=== PATIENT | male | born 1940 | race Caucasian/White ===

== ENCOUNTER 2019-02-11 10:49 | Emergency (ER) | payer MEDICARE ==
[2019-02-11 11:09] LABS: #Basophils 0.1 thou/uL (0.0-0.2); #Eosinphils 0.2 thou/uL (0.0-0.7); #Lymphocytes 2.4 thou/uL (1.20-3.40); #Monocytes 0.5 thou/uL (0.11-0.59); #Neutrophils 4.4 thou/uL (1.40-6.50); %Basophils 0.8 % (0.0-1.0); %Eosinophils 2.2 % (0.0-10.0); %Lymphocytes 31.6 % (21.0-51.0); %Monocytes 6.8 % (0.0-10.0); %Neutrophils 58.6 % (42.0-75.0); Hemoglobin 12.7 g/dL (14.0-18.0); Mean Corpuscular HGB CONC 33.9 g/dL (32.0-36.0); Mean Corpuscular Hemoglobin 30.5 pg (27.0-31.0); Mean Platelet Volume 6.4 fL (7.4-10.4); Platelet Count 322 thou/uL (130-400); RBC Distribution Width 11.7 % (11.5-14.5); Red Blood Cell (RBC) Count 4.17 mill/uL (4.70-6.10); White Blood Cell (WBC) Count 7.6 thou/uL (4.8-10.8)
[2019-02-11 11:28] LABS: Bilirubin Negative (Negative); Blood, Urine Negative (Negative); Clarity CLEAR (Clear); Glucose, Urine (Dipstick) Negative (Negative); Leukocyte Negative (Negative); Nitrite Negative (Negative); Protein, Urine (Dipstick) Negative (Neg-Trace); Specific Gravity, Urine 1.017 (1.002-1.036); Urobilinogen 0.2 mg/dL (0.2-1.0); pH, Urine 6.5 (5.0-9.0)
[2019-02-11 11:32] LABS: ALT (SGPT) 18 U/L (8-55); AST (SGOT) 17 U/L (5-34); Albumin 4.1 g/dL (3.4-4.8); Alkaline Phosphatase 81 U/L (40-150); Anion Gap 11 mmol/L (10-20); BUN (Urea Nitrogen) 21 mg/dL (8.4-25.7); Bilirubin, Total 0.4 mg/dL (0.2-1.2); Calc. Creatinine Clearance 0 mL/min (70-130); Calcium 9.6 mg/dL (7.8-10.44); Carbon Dioxide 27 mmol/L (23-31); Chloride 100 mmol/L (98-107); Estimated GFR-MDRD 52; Globulin 2.9 g/dL (2.4-3.5); Glucose 111 mg/dL (83-110); Lipase 23 U/L (8-78); Potassium 4.4 mmol/L (3.5-5.1); Sodium 134 mmol/L (136-145)
--- NOTE | 2019-02-11 11:49 | CT ---
CT ABDOMEN AND PELVIS NONCONTRAST: Date: 02/11/19 HISTORY: Right flank pain. FINDINGS: Each renal collecting system, ureter, and urinary bladder are decompressed without stone apparent. Lack of contrast limits evaluation for other abnormalities. Projecting laterally from the cortex of t he mid portion of the left kidney, a partially exophytic 1.5 cm hyperdense cyst is noted. Calcification throughout the arterial structures. Postoperative changes lumbar spine. IMPRESSION: 1. No CT evidence of urinary tract obstruction or calcification. 2. Atherosclerosis. POS: CET
[2019-02-11] MEDS ORDERED: Ketorolac Tromethamine 60 MG/2 ML VIAL ONE (12:45)
== END 2019-02-11 13:03 | disposition home or self-care (01) ==
LOC: ERS 10:49
DX: M54.16 Radiculopathy, lumbar region (principal); N40.0 Benign prostatic hyperplasia without lower urinary tract symptoms; E78.5 Hyperlipidemia, unspecified; I10 Essential (primary) hypertension; Z87.891 Personal history of nicotine dependence; Z79.899 Other long term (current) drug therapy; Z79.51 Long term (current) use of inhaled steroids
CPT/HCPCS: 36415; 74176; 80053; 81003; 83690; 85025; 96372; J1885

== ENCOUNTER 2019-03-09 14:32 | Outpatient (CLI) | payer MEDICARE ==
--- NOTE | 2019-03-09 16:48 | MRI ---
MRI LUMBAR SPINE WITH AND WITHOUT CONTRAST: HISTORY: Lumbar spinal stenosis. Severe back pain one month ago. COMPARISON: Noncontrast lumbar spine MRI from 07/08/2014. TECHNIQUE: An MRI of the lumbar spine is performed with and without intravenous Gadolinium administration. Mult isequential, multiplanar imaging is performed. FINDINGS: Heterogeneous marrow signal intensity of the lumbar vertebrae, likely due to senescent change. The o verall marrow signal intensity is similar to the previous examination. Multifocal endplate Schmorl's nodes are noted. Post contrast images do not demonstrate any abnormal enhancement, with regard to t he vertebral bodies. There is no abnormal enhancement within the thecal sac, including the cauda equ tom and the conus medullaris. There is no significant STIR hyperintensity to suggest vertebral body edema or ligamentous injury. T here is 6.7 mm of anterolisthesis of L5 upon S1. No associated spondylolysis. Appropriate signal intensity of the paraspinal muscles. Multiple T2 hyperintensities in the renal cortices, likely representing cysts. A small amount of per inephric fluid is noted bilaterally. T12-L1: No significant central canal stenosis or neural foraminal narrowing. L1-L2: Desiccation with moderate loss of disk space height. No significant central canal stenosis. Mild to moderate bilateral neural foraminal narrowing. L2-L3: Desiccation with moderate loss of disk space height. Central disk protrusion. Mild central canal stenosis. Mild right and moderate left foraminal narrowing. L3-L4: Desiccation with moderate loss of disk space height. Posterior laminectomy defect. No signi ficant central canal stenosis. Moderate right and left foraminal narrowing. L4-L5: Desiccation with moderate loss of disk space height. There is a generalized disk bulge witho ut significant stenosis of the thecal sac. Posterior laminectomy defect is identified. Moderate rig ht and left neural foraminal narrowing. L5-S1: Desiccation with moderate loss of disk space height. There is a posterior laminectomy defect . No significant central canal stenosis. Mild bilateral neural foraminal narrowing. IMPRESSION: 1. Postoperative changes of the lumbar spine, as detailed above. There is no significant central ca nal stenosis. There are varying degrees of neural foraminal narrowing, as detailed above. 2. Grade 1 anterolisthesis of L5 upon S1. 3. Multilevel Schmorl's nodes, similar to the previous examination. POS: OFF
== END 2019-03-09 14:33 | disposition home or self-care (01) ==
LOC: TBSIIMAG 14:32
PROVIDERS: ATTEND Family Medicine
DX: M48.061 Spinal stenosis, lumbar region without neurogenic claudication (principal); M54.16 Radiculopathy, lumbar region; M48.07 Spinal stenosis, lumbosacral region; M43.17 Spondylolisthesis, lumbosacral region; M51.46 Schmorl's nodes, lumbar region; M51.45 Schmorl's nodes, thoracolumbar region; M51.47 Schmorl's nodes, lumbosacral region; Z98.890 Other specified postprocedural states
CPT/HCPCS: 72158

== ENCOUNTER 2019-05-20 13:44 | Emergency (ER) | payer MEDICARE ==
[2019-05-20] MEDS ORDERED: Ketorolac Tromethamine 30 MG/ML VIAL ONE (14:28)
[2019-05-20] MEDS ORDERED: Diazepam 5 MG TAB ONE (14:28)
--- NOTE | 2019-05-20 15:04 | CT ---
CERVICAL SPINE CT WITHOUT CONTRAST: 05/20/19 HISTORY: No trauma. Neck pain x1 week. COMPARISON: None. Straightening of normal cervical lordosis may be due to patient position or muscle spasm. There is n o prevertebral soft tissue swelling. The visualized soft tissue neck structures are unremarkable. Upper mediastinum and lung apices does not demonstrate an acute abnormality. Minimal emphysematous ch anges in the lung apices. No craniocervical dissociation. Appropriate alignment of the lateral masses of C1 and C2. Intact odon toid process. Cervical spine vertebral body height is maintained. There is no cervical spine fracture. Limited evaluation of the contents of the central spinal canal and neural foramina due to technique. C2-C3: No high grade central canal stenosis. Moderate right foraminal narrowing due to uncovertebral and facet hypertrophy. Mild left foraminal narrowing due to uncovertebral hypertrophy. C3-C4: Broad based disc osteophyte complex. Mild central canal stenosis. Moderate to severe right and moderate left foraminal narrowing due to uncovertebral hypertrophy. There is also right facet hypert rophy. C4-C5: Broad based disc osteophyte complex with at least mild central canal stenosis. Moderate bilate ral foraminal narrowing due to uncovertebral hypertrophy. C5-C6: Broad based disc osteophyte complex abuts the thecal sac. Mild to moderate central canal steno sis. Moderate bilateral foraminal narrowing due to uncovertebral hypertrophy. C6-C7: Broad based disc osteophyte complex results in at least mild central canal stenosis. Mild bila teral foraminal narrowing due to uncovertebral hypertrophy. C7-T1: No significant central canal stenosis. Bilaterally, neural foramina are patent. IMPRESSION: 1. No fracture. 2. Straightening of the normal cervical lordosis which may be due to patient position or muscle spasm. 3. Multilevel degenerative changes with disc osteophyte complex. There is varying degrees of kamron tral canal stenosis. No evidence of high grade central stenosis. However, there is significant neural foraminal narrowing at multiple levels. Better interrogation with a nonemergent MRI of the cervical spine. POS: TPC
== END 2019-05-20 16:48 | disposition home or self-care (01) ==
LOC: ERS 13:44
DX: M54.2 Cervicalgia (principal); N40.0 Benign prostatic hyperplasia without lower urinary tract symptoms; E78.5 Hyperlipidemia, unspecified; E78.00 Pure hypercholesterolemia, unspecified; I10 Essential (primary) hypertension; J44.9 Chronic obstructive pulmonary disease, unspecified; Z87.891 Personal history of nicotine dependence; Z79.899 Other long term (current) drug therapy
CPT/HCPCS: 72125; 96372; J1885

== ENCOUNTER 2020-07-22 18:47 | Inpatient (IN) | payer MEDICARE ==
[2020-07-22] MEDS ORDERED: Morphine 4 MG/ML VIAL ONE (19:50)
[2020-07-22] MEDS ORDERED: Piperacillin/Tazobactam 4.5 GM VIAL ONE (19:50)
[2020-07-22 19:51] LABS: %Basophils 0.4 % (0.0-1.0); %Eosinophils 0.3 % (0.0-10.0); %Lymphocytes 18.1 % (21.0-51.0); %Monocytes 8.7 % (0.0-10.0); %Neutrophils 72.6 % (42.0-75.0); Hemoglobin 11.7 g/dL (14.0-18.0); Mean Corpuscular HGB CONC 33.9 g/dL (32.0-36.0); Mean Corpuscular Hemoglobin 30.7 pg (27.0-31.0); Mean Corpuscular Volume 90.4 fL (78.0-98.0); Mean Platelet Volume 7.1 fL (7.4-10.4); Platelet Count 379 thou/uL (130-400); RBC Distribution Width 11.6 % (11.5-14.5); Red Blood Cell (RBC) Count 3.83 mill/uL (4.70-6.10)
[2020-07-22 20:12] LABS: ALT (SGPT) 11 U/L (8-55); AST (SGOT) 18 U/L (5-34); Albumin 3.9 g/dL (3.4-4.8); Alkaline Phosphatase 97 U/L (40-110); Anion Gap 13 mmol/L (10-20); BUN (Urea Nitrogen) 24 mg/dL (8.4-25.7); Bilirubin, Total 0.3 mg/dL (0.2-1.2); Calc. Creatinine Clearance 0 mL/min (70-130); Calcium 10.1 mg/dL (7.8-10.44); Carbon Dioxide 31 mmol/L (23-31); Chloride 98 mmol/L (98-107); Glucose 111 mg/dL (83-110); Potassium 4.2 mmol/L (3.5-5.1); Protein, Total 7.9 g/dL (5.8-8.1); Sodium 138 mmol/L (136-145)
--- NOTE | 2020-07-22 21:04 | RAD ---
THREE VIEWS LEFT HAND: 07/22/20 HISTORY: Dorsal aspect of the hand was scratched by a rabbit. Swelling and pain. FINDINGS: There is soft tissue swelling. Correlate for cellulitis. There are no erosive or destructive changes to suggest osteomyelitis. There are degenerative changes involving the first metacarpophalangeal lara nt space and first interphalangeal joint space. Additional mild degenerative changes noted in the sec ond distal interphalangeal joint space. There are no radiopaque foreign bodies. IMPRESSION: 1. Soft tissue swelling, suggesting cellulitis. Correlate clinically. 2. No fracture or radiopaque foreign body. POS: PPP
[2020-07-22] MEDS ORDERED: Ketorolac Tromethamine 30 MG/ML VIAL ONE (22:10)
[2020-07-22] MEDS ORDERED: Acetaminophen 325 MG TAB PO PRN (23:06)
--- NOTE | 2020-07-22 23:29 | PDOC.HHP ---
Hospitalist HPI - History of Present Illness Rabbit scratch History of Present Illness: Mr. Mcmahon is a 71-year-old male with a past medical history of hypertension, hyperlipidemia, COPD not on home O2, BPH who presented to the ED for a rabbit scratch. Patient reports that 6 days prior to admission he was scratched by a rabbit which mallory blood on his dorsum of left hand. Patient reports that he was at [employer] rabbit that they were purchasing from a breeder when the scratch occurred. Patient immediately cleaned and washed the cut, however he noticed increasing redness and swelling over the next few days and on day 2 presented to [facility]. There he was given Rocephin and discharged with a prescription for p.o. Augmentin. Patient's hand is continued to become increasingly painful with worsening swelling and redness so he represented to the emergency room here. Patient denies fevers, night sweats, chills. Denies any other concerns or complaints at this time. In emergency room initial vital signs 123/52, 82, 22, 98.6, 93% on room air. Lactic acid 0.8. WBC 11.0, H/H 11.7/34.6. BUN/CR 24/1.38, sodium 138 potassium 4.2. X-ray of the left hand showed soft tissue swelling with no evidence of gas. Patient received vancomycin, Zosyn and 1 L of normal saline. Hospitalist ROS - Review of Systems Constitutional: denies: fever, chills, sweats, weakness, malaise, other Eyes: denies: pain, vision change, conjunctivae inflammation, eyelid inflammation, redness, other ENT: denies: ear pain, ear discharge, nose pain, nose discharge, nose congestion, mouth pain, mouth swelling, throat pain, throat swelling, other Respiratory: denies: cough, dry, shortness of breath, hemoptysis, SOB with excertion, pleuritic pain, sputum, wheezing, other Cardiovascular: denies: chest pain, palpitations, orthopnea, paroxysmal noc. dyspnea, edema, light headedness, other Gastrointestinal: denies: nausea, vomiting, abdominal pain, diarrhea, constipation, melena, hematochezia, other Genitourinary: denies: dysuria, frequency, incontinence, hematuria, retention, other Musculoskeletal: reports: hand pain. denies: neck pain, shoulder pain, arm pain, back pain, leg pain, foot pain, other Skin: reports: rash (Erythema and edema to left hand extending up to the wrist.) Neurological: denies: weakness, numbness, incoordination, change in speech, confusion, seizures, other - Medication Medications: Medications include Tamsulosin Crestor Norvasc Finasteride Furosemide Spiriva Symbicort No known drug allergies Hospitalist History - Past Medical History Other Medical History: Past medical history includes BPH Hypertension Hyperlipidemia COPD not on home O2 - Past Surgical History Other Surgical History: Past surgical history includes Back surgery - Family History Other Family History: Denies family history of heart disease or cancer - Social History Smoking Status: Never smoker Alcohol: reports: None Drugs: reports: none Living Situation: With Family Activity level: independent ambulation - Exam General Appearance: NAD, awake alert General - other findings: Hard of hearing Eye: PERRL, anicteric sclera ENT: normocephalic atraumatic, no oropharyngeal lesions, moist mucosa Neck: supple, symmetric, no JVD, no thyromegaly, no lymphadenopathy, no carotid bruit Heart: RRR, no murmur, no gallops, no rubs, normal peripheral pulses Respiratory: CTAB, no wheezes, no rales, no ronchi, normal chest expansion, no tachypnea, normal percussion Gastrointestinal: soft, non-tender, non-distended, normal bowel sounds, no palpable masses, no hepatomegaly, no splenomegaly, no bruit Extremities - other findings: Significant edema and erythema to left hand with 3 cm scratch to the dorsum Skin - other findings: No purulent drainage, no pain along the flexor tendon sheath Neurological: cranial nerve grossly intact, normal sensation to touch, no weakness, no focal deficits, no new deficit Musculoskeletal: normal tone, normal strength, no muscle wasting Psychiatric: normal affect, normal behavior, A&O x 3 Hospitalist Results - Labs Result Diagrams: 07/23/20 06:00 07/23/20 06:00 Lab results: WBC 11.0 thou/uL (4.8-10.8) H 07/22/20 19:39 Hgb 11.7 g/dL (14.0-18.0) L 07/22/20 19:39 Hct 34.6 % (42.0-52.0) L 07/22/20 19:39 MCV 90.4 fL (78.0-98.0) 07/22/20 19:39 Plt Count 379 thou/uL (130-400) 07/22/20 19:39 Neutrophils % 72.6 % (42.0-75.0) 07/22/20 19:39 Sodium 138 mmol/L (136-145) 07/22/20 19:39 Potassium 4.2 mmol/L (3.5-5.1) 07/22/20 19:39 Chloride 98 mmol/L (98-107) 07/22/20 19:39 Carbon Dioxide 31 mmol/L (23-31) 07/22/20 19:39 BUN 24 mg/dL (8.4-25.7) 07/22/20 19:39 Creatinine 1.38 mg/dL (0.7-1.3) H 07/22/20 19:39 Glucose 111 mg/dL (83-110) H 07/22/20 19:39 Lactic Acid 0.8 mmol/L (0.5-2.2) 07/22/20 19:39 Calcium 10.1 mg/dL (7.8-10.44) 07/22/20 19:39 Total Bilirubin 0.3 mg/dL (0.2-1.2) 07/22/20 19:39 AST 18 U/L (5-34) 07/22/20 19:39 ALT 11 U/L (8-55) 07/22/20 19:39 Alkaline Phosphatase 97 U/L (40-110) 07/22/20 19:39 Serum Total Protein 7.9 g/dL (5.8-8.1) 07/22/20 19:39 Albumin 3.9 g/dL (3.4-4.8) 07/22/20 19:39 Hospitalist H&P A/P - Plan Plan: Rabbit scratch with cellulitis 79-year-old male with rabbit scratch now infected and cellulitic. Patient failed outpatient therapy with Augmentin. Given extent of redness/swelling and failure of outpatient abx, concern for [place]. Patient neurovascularly intact with no signs of flexor tenosynovitis. X-ray of hand showed soft tissue swelling but no gas. Patient with white blood cell count of 11.0, lactic acid 0.8. Not currently meeting SIRS criteria. Patient received vancomycin and Zosyn in emergency room. Will add doxycycline for tularemia coverage. Plan IV Zosyn, doxycycline Follow blood cultures Trend WBC, fever curve Elevate extremity COPD Patient with history of COPD not on home O2. Patient's O2 sats did drop in the emergency room to 86% on room air. Is now on 2 L and maintaining O2 sat around 92%. Given patient's infection from a rabbit scratch and potential for tularemia, although rare will obtain chest x-ray to monitor for pneumonia. Patient currently denies any respiratory symptoms. Plan Supplemental oxygen as needed Chest x-ray Continue home Symbicort and Spiriva inhalers DuoNebs as needed ZOEY Patient with mild ZOEY, BUN/CR 24/1.38. Patient denies any history of chronic kidney disease. Baseline creatinine unknown. Will give patient gentle IV fluids and continue to monitor. Plan IV fluids Trend kidney function Avoid nephrotoxic agents when possible Renal dosing is appropriate Hypertension History of hypertension on home Norvasc and furosemide. Will continue home medications once dosages confirmed. Hyperlipidemia On home Crestor. We will continue home statin. BPH History of BPH on tamsulosin. We will continue. DVT prophylaxis: Heparin Full code Case discussed with attending physician, Dr. Jaimes who is in agreement with assessment and plan.
[2020-07-23] MEDS ORDERED: Ondansetron ODT 4 MG TAB SL PRN (00:30)
[2020-07-23] MEDS ORDERED: Ondansetron PF 4 MG/2 ML Vial IVP PRN (00:30)
[2020-07-23] MEDS ORDERED: Acetaminophen 325 MG TAB PO PRN (00:30)
[2020-07-23] MEDS ORDERED: HYDROcodone/Acetaminophen 5/325 mg Tablet PO PRN ×2 (00:30)
[2020-07-23] MEDS: Piperacillin/Tazobactam 3.375 GM in Sodium Chloride 0.9% 100 ML IVPB SCH ×4 (01:52→20:37)
[2020-07-23 06:26] LABS: #Basophils 0.1 thou/uL (0.0-0.2); #Eosinphils 0.1 thou/uL (0.0-0.7); #Lymphocytes 2.2 thou/uL (1.20-3.40); #Monocytes 0.7 thou/uL (0.11-0.59); #Neutrophils 4.9 thou/uL (1.40-6.50); %Basophils 0.7 % (0.0-1.0); %Lymphocytes 28.3 % (21.0-51.0); %Monocytes 8.3 % (0.0-10.0); %Neutrophils 61.7 % (42.0-75.0); Hemoglobin 10.2 g/dL (14.0-18.0); Mean Corpuscular HGB CONC 33.4 g/dL (32.0-36.0); Mean Corpuscular Hemoglobin 31.2 pg (27.0-31.0); Mean Corpuscular Volume 93.1 fL (78.0-98.0); Mean Platelet Volume 7.3 fL (7.4-10.4); Platelet Count 323 thou/uL (130-400); RBC Distribution Width 11.6 % (11.5-14.5); Red Blood Cell (RBC) Count 3.28 mill/uL (4.70-6.10); White Blood Cell (WBC) Count 7.9 thou/uL (4.8-10.8)
[2020-07-23 06:50] LABS: Anion Gap 10 mmol/L (10-20); BUN (Urea Nitrogen) 27 mg/dL (8.4-25.7); Calc. Creatinine Clearance 49 mL/min (70-130); Calcium 8.5 mg/dL (7.8-10.44); Carbon Dioxide 27 mmol/L (23-31); Chloride 105 mmol/L (98-107); Glucose 133 mg/dL (83-110); Sodium 138 mmol/L (136-145)
--- NOTE | 2020-07-23 09:24 | RAD ---
CHEST 1 VIEW: Date: 07/22/2020 INDICATION: History of shortness of breath. COMPARISON: Prior exam dated 12/04/2013. FINDINGS: Chronic lung changes are stable. Mild cardiomegaly is stable. Vascular calcification of aortic arch s table. No pleural effusion or pneumothorax evident. IMPRESSION: Stable chronic findings. No acute abnormality. POS: BH
[2020-07-23] MEDS: Heparin 5,000 UNITS/ML VIAL SC SCH ×3 (10:48→20:38)
--- NOTE | 2020-07-23 12:28 | PDOC.HOSPP ---
- Subjective Encounter Date: 07/23/20 Encounter Time: 10:40 Subjective: feels better, his left hand swelling and pain is coming down is able to flex and move his wrist and fingers now - Objective Vital Signs & Weight: Vital Signs (12 hours) Temp Pulse Resp BP Pulse Ox 07/23/20 10:21 93 L 07/23/20 08:15 97.9 F 65 18 142/64 H 93 L 07/23/20 04:59 93 L 07/23/20 03:45 99.6 F 64 18 123/60 93 L Weight Weight 183 lb 0.091 oz I&O: 07/22/20 07/23/20 07/24/20 06:59 06:59 06:59 Intake Total 450 Output Total 375 Balance 75 Result Diagrams: 07/23/20 06:00 07/23/20 06:00 Hospitalist ROS - Medication Medications: Active Medications Generic Name Dose Route Start Last Admin Trade Name Freq PRN Reason Stop Dose Admin Heparin Sodium (Porcine) 5,000 units 07/23/20 09:00 07/23/20 10:48 Heparin 5,000 Units/Ml Vial SC 5,000 units TID DINESH Administration Piperacillin Sod/Tazobactam 100 mls @ 200 mls/hr 07/23/20 02:00 07/23/20 08:44 Sod 3.375 gm/ Sodium Chloride IVPB 100 mls 0200,0800,1400,2000 DINESH Administration Doxycycline Hyclate 100 mg/ 100 mls @ 100 mls/hr 07/23/20 09:00 07/23/20 10:48 Sodium Chloride IVPB 100 mls Q12HR DINESH Administration Sodium Chloride 10 ml 07/23/20 09:00 07/23/20 10:51 Flush - Normal Saline 10 Ml Syringe IVF 10 ml Q12HR DINESH Administration - Exam General Appearance: awake alert Eye: PERRL, anicteric sclera ENT: no oropharyngeal lesions, moist mucosa Neck: supple, no JVD Heart: RRR, no murmur Respiratory: no wheezes, no rales Gastrointestinal: soft, non-tender, non-distended, normal bowel sounds Extremities - other findings: left forearm and hand erthema, edema+ Neurological: cranial nerve grossly intact, no focal deficits Psychiatric: normal affect, A&O x 3 Hosp A/P (1) Cellulitis of left hand Code(s): L03.114 - CELLULITIS OF LEFT UPPER LIMB Status: Acute (2) rabbit scratch Status: Acute (3) HTN (hypertension) Code(s): I10 - ESSENTIAL (PRIMARY) HYPERTENSION Status: Chronic Qualifiers: Hypertension type: essential hypertension Qualified Code(s): I10 - Essential (primary) hypertension (4) Dyslipidemia Code(s): E78.5 - HYPERLIPIDEMIA, UNSPECIFIED Status: Chronic (5) COPD (chronic obstructive pulmonary disease) Status: Chronic Qualifiers: COPD type: chronic bronchitis Chronic bronchitis type: unspecified Qualified Code(s): J42 - Unspecified chronic bronchitis (6) BPH (benign prostatic hyperplasia) Code(s): N40.0 - BENIGN PROSTATIC HYPERPLASIA WITHOUT LOWER URINRY TRACT SYMP Status: Chronic Qualifiers: Lower urinary tract symptom presence: symptoms absent Qualified Code(s): N40.0 - Benign prostatic hyperplasia without lower urinary tract symptoms - Plan continue doxy and zosyn, watch for renal function on proscar, flomax, crestor, norvasc hemostable to keep his left forearm and hand elevated to reduce swelling has a laceration which is healing (no suturing done per patient) failed augmentin on arrival
[2020-07-23] MEDS ORDERED: Amlodipine 5 MG TAB PO SCH (12:30)
[2020-07-23] MEDS ORDERED: Finasteride 5 MG TAB PO SCH (12:30)
[2020-07-23] MEDS ORDERED: Docusate 100 MG CAP PO SCH (12:30)
[2020-07-23] MEDS ORDERED: Tamsulosin HCl 0.4 MG CAP PO SCH (12:45)
[2020-07-23] MEDS: Ipratropium Bromide 2.5 ml Neb NEB SCH ×2 (14:01→21:40)
[2020-07-23] MEDS: Rosuvastatin 5 MG TAB PO SCH (20:38)
[2020-07-23] MEDS: Mometasone 200 MCG/Formoterol 5 MCG 120 PUFF INHALER INH SCH (20:46)
[2020-07-23 20:50] LABS: SARS-CoV-2 MS2 Positive; SARS-CoV-2 N Gene Negative; SARS-CoV-2 S Gene Negative; SARS-CoV-2 by NAA Not Detected (NotDetected); SARS-CoV-2 orf1ab Negative
[2020-07-23] MEDS: Docusate 100 MG CAP PO SCH (20:51)
[2020-07-23] MEDS ORDERED: FLU VACC QS2020-21(65YR UP)/PF 240 MCG/0.7 ML SYRINGE IM ONE (21:00)
[2020-07-24] MEDS: Ipratropium Oral Inhaler INH SCH ×4 (00:51→18:58)
[2020-07-24] MEDS: Piperacillin/Tazobactam 3.375 GM in Sodium Chloride 0.9% 100 ML IVPB SCH ×4 (02:47→20:30)
[2020-07-24 07:30] LABS: #Basophils 0.1 thou/uL (0.0-0.2); #Eosinphils 0.2 thou/uL (0.0-0.7); #Lymphocytes 2.5 thou/uL (1.20-3.40); #Monocytes 0.5 thou/uL (0.11-0.59); #Neutrophils 3.2 thou/uL (1.40-6.50); %Basophils 0.8 % (0.0-1.0); %Eosinophils 2.4 % (0.0-10.0); %Lymphocytes 38.9 % (21.0-51.0); %Monocytes 7.9 % (0.0-10.0); %Neutrophils 49.9 % (42.0-75.0); Hemoglobin 10.2 g/dL (14.0-18.0); Mean Corpuscular HGB CONC 32.7 g/dL (32.0-36.0); Mean Corpuscular Volume 91.8 fL (78.0-98.0); Mean Platelet Volume 7.1 fL (7.4-10.4); Platelet Count 379 thou/uL (130-400); RBC Distribution Width 11.7 % (11.5-14.5); White Blood Cell (WBC) Count 6.5 thou/uL (4.8-10.8)
[2020-07-24] MEDS: Mometasone 200 MCG/Formoterol 5 MCG 120 PUFF INHALER INH SCH ×2 (07:32→19:00)
[2020-07-24 07:48] LABS: Anion Gap 13 mmol/L (10-20); BUN (Urea Nitrogen) 25 mg/dL (8.4-25.7); Calc. Creatinine Clearance 60 mL/min (70-130); Carbon Dioxide 26 mmol/L (23-31); Chloride 107 mmol/L (98-107); Glucose 96 mg/dL (83-110); Sodium 142 mmol/L (136-145)
[2020-07-24] MEDS: Polyethylene Glycol 3350 17 GM Packet PO SCH (09:52)
[2020-07-24] MEDS: Docusate 100 MG CAP PO SCH ×2 (09:52→20:18)
[2020-07-24] MEDS: Amlodipine 5 MG TAB PO SCH (09:52)
[2020-07-24] MEDS: Finasteride 5 MG TAB PO SCH (09:53)
[2020-07-24] MEDS: Heparin 5,000 UNITS/ML VIAL SC SCH ×3 (09:53→20:30)
[2020-07-24] MEDS: Tamsulosin HCl 0.4 MG CAP PO SCH (11:17)
--- NOTE | 2020-07-24 13:21 | PDOC.HOSPP ---
- Subjective Encounter Date: 07/24/20 Encounter Time: 11:45 Subjective: hand and forearm swelling is significantly better this morning he has been elevating it over pillows no fever, feels better, has very minimal pain today - Objective Vital Signs & Weight: Vital Signs (12 hours) Temp Pulse Resp BP Pulse Ox 07/24/20 13:00 98.4 F 58 L 20 151/63 H 93 L 07/24/20 09:52 61 07/24/20 07:56 98.3 F 61 16 143/61 H 93 L 07/24/20 04:45 98.4 F 58 L 18 118/58 L Weight Weight 183 lb 0.091 oz I&O: 07/23/20 07/24/20 07/25/20 06:59 06:59 06:59 Intake Total 450 550 Output Total 375 475 Balance 75 75 Result Diagrams: 07/24/20 07:09 07/24/20 07:09 Hospitalist ROS - Medication Medications: Active Medications Generic Name Dose Route Start Last Admin Trade Name Freq PRN Reason Stop Dose Admin Amlodipine Besylate 5 mg 07/24/20 09:00 07/24/20 09:52 Amlodipine 5 Mg Tab PO 5 mg DAILY DINESH Administration Docusate Sodium 100 mg 07/23/20 21:00 07/24/20 09:52 Docusate 100 Mg Cap PO Not Given BID DINESH Finasteride 5 mg 07/24/20 09:00 07/24/20 09:53 Finasteride 5 Mg Tab PO 5 mg DAILY DINESH Administration Heparin Sodium (Porcine) 5,000 units 07/23/20 09:00 07/24/20 09:53 Heparin 5,000 Units/Ml Vial SC 5,000 units TID DINESH Administration Piperacillin Sod/Tazobactam 100 mls @ 200 mls/hr 07/23/20 02:00 07/24/20 07:53 Sod 3.375 gm/ Sodium Chloride IVPB 100 mls 0200,0800,1400,2000 DINESH Administration Ipratropium [place] 2 puff 07/24/20 01:00 07/24/20 07:31 Ipratropium Oral Inhaler INH 2 puff [id number] DINESH Administration Mometasone Furoate/Formoterol Fumar 2 puff 07/23/20 18:30 07/24/20 07:32 Mometasone 200 Mcg/Formoterol 5 Mcg 120 Puff Inhaler INH 2 puff BID-RT DINESH Administration Polyethylene Glycol 17 gm 07/24/20 09:00 07/24/20 09:52 Polyethylene Glycol 3350 17 Gm Packet PO Not Given DAILY DINESH Rosuvastatin Calcium 5 mg 07/23/20 21:00 07/23/20 20:38 Rosuvastatin 5 Mg Tab PO 5 mg HS DINESH Administration Sodium Chloride 10 ml 07/23/20 09:00 07/24/20 09:53 Flush - Normal Saline 10 Ml Syringe IVF Not Given Q12HR DINESH Tamsulosin HCl 0.4 mg 07/24/20 09:00 07/24/20 11:17 Tamsulosin Hcl 0.4 Mg Cap PO 0.4 mg DAILY DINESH Administration - Exam General Appearance: awake alert Eye: PERRL, anicteric sclera ENT: no oropharyngeal lesions, moist mucosa Neck: supple, no JVD Heart: RRR, no murmur Respiratory: no wheezes, no rales Gastrointestinal: soft, non-tender, non-distended, normal bowel sounds Extremities: no cyanosis Extremities - other findings: left hand has edema but forearm has cleared up mostly Neurological: cranial nerve grossly intact, no focal deficits Psychiatric: normal affect, A&O x 3 Hosp A/P (1) Cellulitis of left hand Code(s): L03.114 - CELLULITIS OF LEFT UPPER LIMB Status: Acute (2) rabbit scratch Status: Acute (3) HTN (hypertension) Code(s): I10 - ESSENTIAL (PRIMARY) HYPERTENSION Status: Chronic Qualifiers: Hypertension type: essential hypertension Qualified Code(s): I10 - [place]ia l (primary) hypertension (4) Dyslipidemia Code(s): E78.5 - HYPERLIPIDEMIA, UNSPECIFIED Status: Chronic (5) COPD (chronic obstructive pulmonary disease) Status: Chronic Qualifiers: COPD type: chronic bronchitis Chronic bronchitis type: unspecified Qualified Code(s): J42 - Unspecified chronic bronchitis (6) BPH (benign prostatic hyperplasia) Code(s): N40.0 - BENIGN PROSTATIC HYPERPLASIA WITHOUT LOWER URINRY TRACT SYMP Status: Chronic Qualifiers: Lower urinary tract symptom presence: symptoms absent Qualified Code(s): N40.0 - Benign prostatic hyperplasia without lower urinary tract symptoms - Plan continue doxy and zosyn, renal function stable on proscar, flomax, crestor, norvasc hemostable to keep his left forearm and hand elevated to reduce swelling has a laceration which is healing (no suturing done per patient) failed augmentin on arrival likely dc plan in am on oral keflex or levaquin
[2020-07-24] MEDS: Rosuvastatin 5 MG TAB PO SCH (20:30)
[2020-07-24] MEDS: Doxycycline 100 MG CAP PO SCH (20:30)
[2020-07-25] MEDS: Ipratropium Oral Inhaler INH SCH ×3 (00:38→13:50)
[2020-07-25] MEDS: Piperacillin/Tazobactam 3.375 GM in Sodium Chloride 0.9% 100 ML IVPB SCH ×2 (01:59→09:49)
[2020-07-25 07:07] LABS: #Basophils 0.1 thou/uL (0.0-0.2); #Eosinphils 0.2 thou/uL (0.0-0.7); #Lymphocytes 2.2 thou/uL (1.20-3.40); #Monocytes 0.5 thou/uL (0.11-0.59); #Neutrophils 2.9 thou/uL (1.40-6.50); %Basophils 1.2 % (0.0-1.0); %Eosinophils 2.7 % (0.0-10.0); %Lymphocytes 37.7 % (21.0-51.0); %Monocytes 9.1 % (0.0-10.0); %Neutrophils 49.4 % (42.0-75.0); Hemoglobin 9.7 g/dL (14.0-18.0); Mean Corpuscular HGB CONC 32.3 g/dL (32.0-36.0); Mean Corpuscular Hemoglobin 29.7 pg (27.0-31.0); Mean Corpuscular Volume 91.8 fL (78.0-98.0); Platelet Count 379 thou/uL (130-400); RBC Distribution Width 11.7 % (11.5-14.5); Red Blood Cell (RBC) Count 3.27 mill/uL (4.70-6.10); White Blood Cell (WBC) Count 5.9 thou/uL (4.8-10.8)
[2020-07-25 07:25] LABS: Anion Gap 11 mmol/L (10-20); BUN (Urea Nitrogen) 18 mg/dL (8.4-25.7); Calc. Creatinine Clearance 71 mL/min (70-130); Calcium 8.7 mg/dL (7.8-10.44); Carbon Dioxide 27 mmol/L (23-31); Chloride 108 mmol/L (98-107); Glucose 76 mg/dL (83-110); Potassium 3.7 mmol/L (3.5-5.1); Sodium 142 mmol/L (136-145)
[2020-07-25] MEDS: Mometasone 200 MCG/Formoterol 5 MCG 120 PUFF INHALER INH SCH (08:24)
[2020-07-25] MEDS: Polyethylene Glycol 3350 17 GM Packet PO SCH (09:54)
[2020-07-25] MEDS: Amlodipine 5 MG TAB PO SCH (09:54)
[2020-07-25] MEDS: Docusate 100 MG CAP PO SCH (09:55)
[2020-07-25] MEDS: Finasteride 5 MG TAB PO SCH (09:55)
[2020-07-25] MEDS: Doxycycline 100 MG CAP PO SCH (09:55)
[2020-07-25] MEDS: Tamsulosin HCl 0.4 MG CAP PO SCH (09:55)
[2020-07-25] MEDS: Heparin 5,000 UNITS/ML VIAL SC SCH (09:56)
[2020-07-25 14:33] VITALS: BP 139/65; TEMP 98.6
--- NOTE | 2020-07-25 17:06 | DIS ---
DATE OF ADMISSION: 07/22/2020 DATE OF DISCHARGE: 07/25/2020 DISCHARGE DISPOSITION: Home. PRIMARY DISCHARGE DIAGNOSES: Left upper extremity cellulitis with history of rabbit scratch. SECONDARY DISCHARGE DIAGNOSES: 1. Hypertension. 2. Chronic obstructive pulmonary disease. 3. Dyslipidemia. 4. Benign prostatic hypertrophy. PROCEDURES DONE DURING HOSPITALIZATION: Chest x-ray done showed no acute abnormality. Three-view left hand x-ray done, soft tissue swelling suggesting cellulitis. No fracture or radiopaque foreign body was seen. White count of 11 on the day of admission with discharge number of 5.9, H and H of 9 and 30, platelet count 379, and MCV 91. BUN 18 and creatinine 1.0. COVID-19 PCR was not detected on 07/22/2020. DISCHARGE MEDICATION: 1. Norvasc 5 mg daily. 2. Colace 100 mg twice daily. 3. Crestor 5 mg at bedtime. 4. Flomax 0.4 mg p.o. daily. 5. Lasix 20 mg daily. 6. MiraLAX 17 g daily. 7. MS Contin 15 mg three times daily p.r.n., which is his home medication. 8. Proscar 5 mg p.o. daily. 9. Spiriva inhaler 18 mcg daily. 10. Keflex 500 mg 4 times daily for a total of nine days. ALLERGIES: NO KNOWN DRUG ALLERGIES. DISCHARGE PLAN: Patient is to follow up with his primary care physician, Dr. Mcgraw, in a week. BRIEF COURSE DURING HOSPITALIZATION: Patient initially got admitted on the with complaints of left upper extremity redness and swelling. He was scratched by a rabbit six days back on the wrist and forearm aspect of the left upper extremity. He had taken a course of Augmentin, which did not relieve. He has responded well with IV antibiotics. His left upper extremity, specifically the hand and forearm edema is slowly receding with elevation of the limb. He has been switched over to Keflex for a total duration of nine days. Patient has been asked to come to the emergency room if he were to develop worsening of swelling and redness. Hand x-ray done has not revealed any foreign body. He is hemodynamically stable, ambulating and eating well prior to discharge. Please note, I have seen and examined the patient on the day of discharge. Job ID: [id number]
== END 2020-07-25 15:27 | disposition home or self-care (01) | DRG 603 ==
LOC: ERS 18:47 → 3SE 21:55 → 3SW 07-23 18:30
PROVIDERS: ADMIT Internal Medicine; ATTEND Internal Medicine
DX: L03.114 Cellulitis of left upper limb (principal); N17.9 Acute kidney failure, unspecified; Z20.828 Contact with and (suspected) exposure to other viral communicable diseases; E78.5 Hyperlipidemia, unspecified; E78.00 Pure hypercholesterolemia, unspecified; J44.9 Chronic obstructive pulmonary disease, unspecified; I10 Essential (primary) hypertension; N40.0 Benign prostatic hyperplasia without lower urinary tract symptoms; Z87.891 Personal history of nicotine dependence; Z28.21 Immunization not carried out because of patient refusal; Z79.899 Other long term (current) drug therapy
CPT/HCPCS: 36415; 71045; 80048; 80053; 83605; 85025; 87040; 87635; 94640; 94664; 96365; 96366; 96367; 96375; J1644; J1885; J2270; J2543; J3370; J3490; J7030; U0003

== ENCOUNTER 2022-12-27 10:11 | Outpatient (CLI) | payer MEDICARE | END 2022-12-27 10:12 | disposition home or self-care (01) | LOC: BICRAD 10:11 | PROVIDERS: ATTEND Nurse Practitioner Family | DX: M47.816 Spondylosis without myelopathy or radiculopathy, lumbar region (principal); Z98.890 Other specified postprocedural states | CPT/HCPCS: 72120 ==

== ENCOUNTER 2023-04-09 12:40 | Outpatient (CLI) | payer MEDICARE | END 2023-04-09 12:41 | disposition home or self-care (01) | LOC: BICMRI 12:40 | PROVIDERS: ATTEND Nurse Practitioner Family | DX: M47.816 Spondylosis without myelopathy or radiculopathy, lumbar region (principal); M47.813 Spondylosis without myelopathy or radiculopathy, cervicothoracic region; M47.817 Spondylosis without myelopathy or radiculopathy, lumbosacral region | CPT/HCPCS: 72148 ==

== ENCOUNTER 2023-09-10 06:09 | Day surgery (SDC) | payer MEDICARE ==
[2023-09-06 09:01] VITALS: BMI 21.9
[2023-09-10] MEDS ORDERED: Lidocaine 2% PF 5 ML VIAL ONE (07:00)
[2023-09-10] MEDS ORDERED: PROPOFOL 40 ML ONE (07:00)
[2023-09-10] MEDS ORDERED: ePHEDrine Sulfate 50 MG/10 ML VIAL ONE (07:53)
== END 2023-09-10 09:10 | disposition home or self-care (01) ==
LOC: SDC 06:09
PROVIDERS: ATTEND Internal Medicine Gastroenterology
PROC: 0DBK8ZZ Excision of Ascending Colon, Via Natural or Artificial Opening Endoscopic (ICD-10-PCS; principal; 2023-09-10)
PROC: 0DBL8ZZ Excision of Transverse Colon, Via Natural or Artificial Opening Endoscopic (ICD-10-PCS; 2023-09-10)
DX: Z12.11 Encounter for screening for malignant neoplasm of colon (principal); D12.2 Benign neoplasm of ascending colon; D12.3 Benign neoplasm of transverse colon; J44.9 Chronic obstructive pulmonary disease, unspecified; E78.00 Pure hypercholesterolemia, unspecified; I10 Essential (primary) hypertension; K57.30 Diverticulosis of large intestine without perforation or abscess without bleeding; Z98.890 Other specified postprocedural states; Z79.899 Other long term (current) drug therapy; Z87.891 Personal history of nicotine dependence
CPT/HCPCS: 88305; J2001; J2704

== ENCOUNTER 2024-04-29 17:04 | Observation (INO) | payer MEDICARE ==
[2024-04-29 18:18] VITALS: BMI 20.9
[2024-04-29] MEDS ORDERED: Acetaminophen 325 MG TAB PO PRN (20:28)
[2024-04-29] MEDS ORDERED: Nitroglycerin 0.4 MG TAB (25 Tab Bottle) SL PRN (20:28)
[2024-04-29] MEDS ORDERED: Ondansetron PF 4 MG/2 ML Vial IVP PRN (20:28)
[2024-04-29] MEDS ORDERED: Ipratropium/Albuterol 3 ML NEB EZPAP PRN (20:35)
[2024-04-29] MEDS ORDERED: Aspirin Chewable 81 MG TAB PO SCH (20:45)
[2024-04-29] MEDS: HYDROcodone/Acetaminophen 5/325 mg Tablet PO SCH (20:54)
[2024-04-29] MEDS: Rosuvastatin 5 MG TAB PO SCH (20:55)
[2024-04-29] MEDS: Tamsulosin HCl 0.4 MG CAP PO SCH (20:55)
[2024-04-29 21:15] LABS: Anion Gap 14 mmol/L (10-20); BUN (Urea Nitrogen) 35 mg/dL (8.4-25.7); Calc. Creatinine Clearance 46 mL/min (70-130); Calcium 9.1 mg/dL (7.8-10.44); Carbon Dioxide 24 mmol/L (23-31); Chloride 104 mmol/L (98-107); Estimated GFR 56; Glucose 100 mg/dL (83-110); Potassium 4.6 mmol/L (3.5-5.1); Sodium 137 mmol/L (136-145)
[2024-04-29 21:21] LABS: Troponin I 0.024 ng/mL (< 0.028)
[2024-04-29] MEDS: Ipratropium/Albuterol 3 ML NEB NEB SCH (22:46)
[2024-04-30 01:52] LABS: Magnesium 1.9 mg/dL (1.6-2.6)
[2024-04-30 05:01] LABS: #Basophils 0.07 10x3/uL (0.0-0.2); %Basophils 1.3 % (0.0-1.0); %Eosinophils 0.9 % (0.0-10.0); %Lymphocytes 44.7 % (21.0-51.0); %Monocytes 8.6 % (0.0-10.0); %Neutrophils 44.3 % (42.0-75.0); Hematocrit 29.8 % (42.0-52.0); Hemoglobin 9.7 g/dL (14.0-18.0); Mean Corpuscular HGB CONC 32.6 g/dL (32.0-36.0); Mean Corpuscular Hemoglobin 28.7 pg (27.0-31.0); Mean Corpuscular Volume 88.2 fL (78.0-98.0); Mean Platelet Volume 9.3 fL (7.4-10.4); Platelet Count 257 10x3/uL (130-400); RBC Distribution Width 13.1 % (11.5-14.5); Red Blood Cell (RBC) Count 3.38 mill/uL (4.70-6.10)
[2024-04-30 05:14] LABS: Hemoglobin A1c 5.7 % (4.0-6.0)
[2024-04-30 05:19] LABS: Anion Gap 11 mmol/L (10-20); BUN (Urea Nitrogen) 34 mg/dL (8.4-25.7); Calc. Creatinine Clearance 43 mL/min (70-130); Calcium 8.7 mg/dL (7.8-10.44); Carbon Dioxide 25 mmol/L (23-31); Chloride 105 mmol/L (98-107); Estimated GFR 52; Glucose 77 mg/dL (83-110); Potassium 4.4 mmol/L (3.5-5.1); Sodium 137 mmol/L (136-145)
[2024-04-30] MEDS ORDERED: Mometasone 100 MCG HFA INHALER (RT USE) INH SCH (06:30)
[2024-04-30] MEDS: Mometasone 100 MCG/Formoterol 5 MCG 120 PUFF INHALER INH SCH (07:12)
[2024-04-30] MEDS: Amlodipine 5 MG TAB PO SCH (08:08)
[2024-04-30] MEDS: Enoxaparin 40 MG (0.4 mL) SYRINGE SC SCH (08:09)
[2024-04-30] MEDS: Aspirin Chewable 81 MG TAB PO SCH (08:09)
[2024-04-30] MEDS: Furosemide 20 MG TAB PO SCH (08:09)
[2024-04-30] MEDS: Finasteride 5 MG TAB PO SCH (08:09)
[2024-04-30] MEDS ORDERED: Non-Formulary Item 1 EACH (Fluticasone/Umeclidin/Vilanter [Trelegy Ellipta 100-62.5-25] 1 INH SCH (09:00)
[2024-04-30 16:25] VITALS: BP 126/64; TEMP 97.9
== END 2024-04-30 18:01 | disposition home or self-care (01) ==
LOC: 2SE 18:01
PROVIDERS: ADMIT Family Medicine; ATTEND Family Medicine
PROC: B246ZZZ Ultrasonography of Right and Left Heart (ICD-10-PCS; principal; 2024-04-30)
DX: R07.81 Pleurodynia (principal); N17.9 Acute kidney failure, unspecified; I12.9 Hypertensive chronic kidney disease with stage 1 through stage 4 chronic kidney disease, or unspecified chronic kidney disease; N18.30 Chronic kidney disease, stage 3 unspecified; J44.9 Chronic obstructive pulmonary disease, unspecified; E78.5 Hyperlipidemia, unspecified; N40.0 Benign prostatic hyperplasia without lower urinary tract symptoms; Z79.899 Other long term (current) drug therapy
CPT/HCPCS: 78451; 80048 ×2; 83036; 83735; 84443; 84484; 85025; 93005; 93306; 94640 ×3; A9502; J1650; 36415; 93010; 96372; G0378; J7620

== ENCOUNTER 2025-07-22 16:29 | Emergency (ER) | payer MEDICARE ==
[2025-07-22] MEDS ORDERED: Dexamethasone 10 MG/ML VIAL ONE (19:09)
== END 2025-07-22 19:14 | disposition home or self-care (01) ==
LOC: ERS 16:29
DX: M25.551 Pain in right hip (principal); E78.5 Hyperlipidemia, unspecified; I10 Essential (primary) hypertension; Z87.891 Personal history of nicotine dependence; Z79.899 Other long term (current) drug therapy
CPT/HCPCS: 72131; 93005; 96374; J1100; J2272